=== PATIENT | female | born 1960 | race American Indian/Alaskan Native ===

== ENCOUNTER 2017-06-13 20:12 | Emergency (ER) | payer MEDICAID ==
[2017-06-13 20:49] VITALS: BP 166/92
[2017-06-13] MEDS ORDERED: ULTRAM PO ONE (22:51)
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
== END 2017-06-13 23:27 | disposition left against medical advice (07) ==
LOC: ED 20:12
DX: Z53.21 Procedure and treatment not carried out due to patient leaving prior to being seen by health care provider (principal)
CPT/HCPCS: 70450; 72125; 72128; 72131

== ENCOUNTER 2017-06-14 11:42 | Emergency (ER) | payer OTHER, MEDICAID ==
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
[2017-06-14] MEDS ORDERED: PERCOCET 5/325 PO ONE (14:58)
[2017-06-14 15:39] VITALS: BP 121/83
== END 2017-06-14 15:39 | disposition home or self-care (01) ==
LOC: ED 11:42
DX: G89.29 Other chronic pain (principal); V49.40XA Driver injured in collision with unspecified motor vehicles in traffic accident, initial encounter; I10 Essential (primary) hypertension; E11.9 Type 2 diabetes mellitus without complications; M54.5 Low back pain; J30.2 Other seasonal allergic rhinitis; Z79.84 Long term (current) use of oral hypoglycemic drugs; Y93.89 Activity, other specified; Y92.89 Other specified places as the place of occurrence of the external cause; Y99.8 Other external cause status
CPT/HCPCS: 99282